=== PATIENT | female | born 1990 | race American Indian/Alaskan Native ===

== ENCOUNTER 2018-04-08 16:36 | Emergency (ER) | payer SELFPAY ==
[2018-04-08 16:48] VITALS: BP 118/60
== END 2018-04-08 17:40 | disposition left against medical advice (07) ==
LOC: ED 16:36
DX: N83.209 Unspecified ovarian cyst, unspecified side (principal); Z53.21 Procedure and treatment not carried out due to patient leaving prior to being seen by health care provider

== ENCOUNTER 2018-08-28 03:52 | Outpatient (CLI) | payer MEDICAID ==
[2018-08-28] MEDS ORDERED: LACTATED RINGERS 1,000 ML IV ONE (04:23)
[2018-08-28 04:58] LABS: Bilirubin,Urine NEG (Negative); Blood,Urine NEG (Negative); Color,Urine Yellow (Yellow); Mucus,Urine FEW /HPF; Protein,Urine <15 mg/dL mg/dL (Negative); Urobilinogen,Urine < 2.0 mg/dL (<2.0)
[2018-08-28 05:46] VITALS: BP 103/61
== END 2018-08-28 06:00 | disposition home or self-care (01) ==
LOC: TRG 03:52
PROVIDERS: ATTEND Obstetrics & Gynecology
DX: O47.03 False labor before 37 completed weeks of gestation, third trimester (principal); Z3A.30 30 weeks gestation of pregnancy
CPT/HCPCS: 59025; 81001

== ENCOUNTER 2018-10-14 09:53 | Outpatient (CLI) | payer MEDICAID ==
[2018-10-14 10:09] VITALS: BP 106/61
== END 2018-10-14 10:50 | disposition home or self-care (01) ==
LOC: TRG 09:53
PROVIDERS: ATTEND Obstetrics & Gynecology
DX: O47.03 False labor before 37 completed weeks of gestation, third trimester (principal); Z3A.37 37 weeks gestation of pregnancy
CPT/HCPCS: 59025

== ENCOUNTER 2018-10-16 07:23 | Outpatient (CLI) | payer MEDICAID ==
[2018-10-16 07:51] VITALS: BP 115/64
[2018-10-16] MEDS ORDERED: TYLENOL PO ONE ×2 (08:39→09:00)
[2018-10-16] MEDS ORDERED: TYLENOL ONE (08:45)
== END 2018-10-16 08:45 | disposition home or self-care (01) ==
LOC: TRG 07:23
PROVIDERS: ATTEND Obstetrics & Gynecology
DX: O47.03 False labor before 37 completed weeks of gestation, third trimester (principal); Z3A.37 37 weeks gestation of pregnancy
CPT/HCPCS: 59025

== ENCOUNTER 2018-10-22 22:37 | Outpatient (CLI) | payer MEDICAID ==
[2018-10-22] MEDS ORDERED: TYLENOL PO PRN (23:57)
[2018-10-23 00:50] LABS: Bacteria,Urine 1+ /HPF (Negative); Bilirubin,Urine NEG (Negative); Blood,Urine NEG (Negative); Color,Urine Yellow (Yellow); Mucus,Urine 3+ /HPF; Protein,Urine <15 mg/dL mg/dL (Negative)
[2018-10-23 01:16] VITALS: BP 108/60
== END 2018-10-23 01:43 | disposition home or self-care (01) ==
LOC: TRG 22:37
PROVIDERS: ATTEND Obstetrics & Gynecology
DX: O47.1 False labor at or after 37 completed weeks of gestation (principal); Z3A.38 38 weeks gestation of pregnancy
CPT/HCPCS: 59025; 81001

== ENCOUNTER 2018-10-30 18:51 | Outpatient (CLI) | payer MEDICAID | END 2018-10-30 21:50 | disposition home or self-care (01) | LOC: TRG 18:51 | PROVIDERS: ATTEND Obstetrics & Gynecology | DX: O47.1 False labor at or after 37 completed weeks of gestation (principal); Z3A.39 39 weeks gestation of pregnancy | CPT/HCPCS: 59025 ==

== ENCOUNTER 2018-10-31 02:09 | Outpatient (CLI) | payer MEDICAID ==
--- NOTE | 2018-10-31 06:20 | Ultrasound Report ---
Limited OB ultrasound for abruption FINDINGS: The placenta is lateral and to the right. There is no definite abruption. Single fetus is i dentified in vertex presentation with heart rate of 155 bpm. Signer Name: Brayden Mata MD Signed: 10/31/2018 6:15 AM Workstation Name: [id number]
== END 2018-10-31 06:02 | disposition home or self-care (01) ==
LOC: TRG 02:09
PROVIDERS: ATTEND Obstetrics & Gynecology
DX: O62.8 Other abnormalities of forces of labor (principal); Z3A.39 39 weeks gestation of pregnancy
CPT/HCPCS: 59025; 76815

== ENCOUNTER 2018-11-01 11:17 | Inpatient (IN) | payer MEDICAID ==
[2018-11-01] MEDS ORDERED: BRETHINE IVP PRN (15:18)
[2018-11-01] MEDS ORDERED: MINERAL OIL PO PRN (15:18)
[2018-11-01] MEDS ORDERED: XYLOCAINE 2% INFILTRATI ONE (15:18)
[2018-11-01] MEDS ORDERED: BRETHINE SUB-Q PRN (15:18)
--- NOTE | 2018-11-01 15:18 | History and Physical Report ---
History of Present Illness Date of examination: 11/01/18 Date of admission: 11/01/18 15:16 Chief complaint: vaginal bleeding History of present illness: Patient called office with c/o vaginal bleeding "like a period" and was sent to triage for evaluation. Menstrual History Regularity: regular Menses every: 30 days Duration: 5 LMP: 01/26/2018 LMP reliability: definite LMP character: normal test type: urine test Date: 04/03/2018 BC at conception: none Planned ? no EDC Calculations LMP: 11/02/2018 EDC Confirmation: 11/02/2018 Gestational Age: 12 6/7 weeks Past History : 3 Term Births: 1 Premature Births: 1 Living Children: 1 Para: 2 Mult. Births: 0 Prev : 0 Prev. attempt? none Aborta: 0 Elect. Ab: 0 Spont. Ab: 0 Ectopics: 0 # 1 Delivery date: 03/12/2009 Weeks Gestation: 39+5 Delivery type: Vaginal Anesthesia type: epidural Delivery location: [facility] Infant Sex: female weight: 7.25 Name: Omayra Comments: mild shoulder, dystocia, PP bleeding # 2 Delivery date: 02/10/2011 Weeks Gestation: 36 labor: yes Delivery type: Anesthesia type: epidural Delivery location: [facility] Sex: Female weight: unknown Name: Jorden Past Medical History: Reviewed history from 04/23/2009 and no changes required: Negative Past Medical History Past Surgical History: wrist surgery- 2011 Past Medical History Surgery (Non-title i teacher): wrist surgery- 2011 Abnormal PAP: negative CHRISTINE Exposure: negative Infertility: negative Uterine Anomaly: negative Uterine Surgery (not C/S): negative Other Gynecologic Problems: negative Social Hx: single, no etoh, no illicit drug use, no tobacco use Infection History Hx of STD: chlamydia HIV Risk Eval: low risk Hepatitis B Risk Eval: low risk Personal hx. of genital herpes: no Partner hx. of genital herpes: no Varicella/Chicken Pox Status: Immunized TB Risk: no Infection History Comments: chlamydia 2008 Genetic History Congenital Heart Defect: Mom: no Dad: no Lisa Disease: Mom: no Dad: no Thalassemia Mom: no Dad: no Neural Tube Defect Mom: no Dad: no Down's Syndrome Mom: no Dad: no Jakub-Sachs Mom: no Dad: no Sickle Cell Disease/Trait Mom: no Dad: no Hemophilia Mom: no Dad: no Muscular Dystrophy Mom: no Dad: no Cystic Fibrosis Mom: no Dad: no Jorgito Chorea Mom: no Dad: no Mental Retardation Mom: no Dad: no Fragile X Mom: no Dad: no Other Genetic/Chromosomal Disorder Mom: no Dad: no Child w/other defect Mom: no Dad: no Enviromental Exposures Enviromental Exposures Reviewed Xray Exposure: no Medication, drug, or alcohol use since LMP: no Chemical/Other Exposure: no Exposure to Cat Liter: yes Hx of Parvovirus (Fifth Disease): no Occupational Exposure to Children: none Active Medications: None Current Allergies (reviewed today): No known allergies Past History Past Medical History: other (see HPI) Past Surgical History: other (see HPI) [employer] History: other (see HPI) Family/Genetic History: other (see HPI) Social history: other (see HPI) - Obstetrical History Expected Date of Delivery: 11/02/18 Actual Gestation: 39 Week(s) 6 Day(s) : 3 Para: 2 Medications and Allergies Allergies Allergy/AdvReac Type Severity Reaction Status Date / Time No Known Allergies Allergy Verified 10/22/18 23:24 Home Medications Medication Instructions Recorded Confirmed Last Taken Type Vit-Fe Fumar-FA [ 1 tab PO DAILY 08/28/18 11/01/18 10/30/18 08:00 History Vitamin] Review of Systems All systems: negative Genitourinary: vaginal bleeding, contractions - Vital Signs Vital signs: Vital Signs Pulse BP 81 117/59 11/01/18 11:33 11/01/18 11:33 Temp Pulse Resp BP Pulse Ox 98.3 F 81 18 117/59 11/01/18 11:34 11/01/18 11:33 11/01/18 11:34 11/01/18 11:33 - Physical Exam Breasts: Cardiovascular: Regular rate, Normal S1, Normal S2 Lungs: Positive: Clear to auscultation, Normal air movement Abdomen: Positive: normal appearance, soft, normal bowel sounds. Negative: distention, tenderness Genitourinary (Female): Positive: normal external genitalia, normal perenium Vulva: both: normal Vagina: Positive: normal moisture. Negative: discharge Cervix: Negative: lesion, discharge Uterus: Positive: normal size, normal contour Adnexa: both: normal Anus/Rectum: Positive: normal perianal skin. Negative: rectal mass, hemorrhoids Extremities: Deep Tendon Reflex Grade: Normal +2 - Obstetrical FHR: auscultation normal Cervical Dilatation: 3.5 Cervical Effacement Percentage: 60 station: -2 Results Result Diagrams: 11/01/18 15:05 All other labs normal. Assessment and Plan Patient presents to triage for evaluation of vaginal bleeding. US shows decreased ZAHRA of 2.9. No s/s of ROM. Pt admitted for IOL. Admission orders placed in EMR. GBS negative.
--- NOTE | 2018-11-01 15:24 | Ultrasound Report ---
ULTRASOUND BIOPHYSICAL PROFILE INDICATION: wellbeing and vaginal bleeding. COMPARISON: None available. FINDINGS: heart rate is 126 beats per minute. breathing movement = 2 Gross body movement = 2 tone = 2 Qualitative amniotic fluid volume = 2 IMPRESSION: biophysical profile = 10/31 Signer Name: Michael Stack Jr, MD Signed: 11/01/2018 3:20 PM Workstation Name: [id number]
[2018-11-01 15:31] LABS: Hematocrit 30.3 % (30.3-42.9); Hemoglobin 10.4 gm/dl (10.1-14.3); Mean Corpuscular HGB Conc 34 % (30-34); Mean Corpuscular Volume 85 fl (79-97); Platelet Count 270 K/mm3 (140-440); Red Blood Count 3.59 M/mm3 (3.65-5.03)
--- NOTE | 2018-11-01 15:36 | Ultrasound Report ---
ULTRASOUND OB LIMITED INDICATION: decreased movment TECHNIQUE: Transabdominal ultrasound imaging. COMPARISON: None FINDINGS: Single intrauterine is identified. The placenta is fundal, right lateral grade 2. Amniotic fluid index is 2.9 cm. Presentation is cephalic. heart rate is 129 beats per minute. IMPRESSION: Oligohydramnios. Signer Name: Michael Stack Jr, MD Signed: 11/01/2018 3:32 PM Workstation Name: [id number]
[2018-11-01] MEDS: LACTATED RINGERS 1,000 ML IV SCH ×3 (15:59→20:33)
[2018-11-01] MEDS ORDERED: PITOCin/NS 20 UNIT/1000ML DRIP 20 UNITS/1,000 ML BAG IV SCH (16:00)
[2018-11-01] MEDS ORDERED: PITOCin/NS 30 UNIT/500ML 30 UNITS/500 ML BAG IV SCH ×2 (16:00)
[2018-11-01] MEDS ORDERED: SUBLIMAZE IV ONE (18:55)
--- NOTE | 2018-11-01 19:05 | Progress Note ---
Assessment and Plan Progressing well. Allow epidural - Patient Problems (1) 39 weeks gestation of Current Visit: Yes Status: Acute (2) Oligohydramnios Current Visit: Yes Status: Acute Qualifiers: Fetus number: single or unspecified fetus Subjective - Subjective Date of service: 11/01/18 Principal diagnosis: IUP@39weeks, oligohydramnios Patient reports: movement normal, contractions Objective - Vital Signs Vital Signs: Vital Signs - 12hr 11/01/18 11/01/18 11/01/18 11:33 11:34 15:18 Temperature 98.3 F Pulse Rate 81 80 Respiratory 18 Rate Blood Pressure 117/59 108/59 O2 Sat by Pulse Oximetry 11/01/18 11/01/18 11/01/18 15:44 15:49 15:54 Temperature Pulse Rate 100 H 77 Respiratory Rate Blood Pressure O2 Sat by Pulse 95 100 100 Oximetry 11/01/18 11/01/18 11/01/18 15:59 16:04 16:09 Temperature Pulse Rate 73 86 80 Respiratory Rate Blood Pressure O2 Sat by Pulse 100 100 99 Oximetry 11/01/18 11/01/18 11/01/18 16:14 16:19 16:24 Temperature Pulse Rate 81 83 82 Respiratory Rate Blood Pressure O2 Sat by Pulse 99 100 98 Oximetry 11/01/18 11/01/18 11/01/18 16:29 16:34 16:39 Temperature Pulse Rate 99 H 85 82 Respiratory Rate Blood Pressure O2 Sat by Pulse 99 99 98 Oximetry 11/01/18 11/01/18 11/01/18 16:45 16:46 16:50 Temperature Pulse Rate 86 83 Respiratory Rate Blood Pressure O2 Sat by Pulse 96 94 100 Oximetry 11/01/18 11/01/18 11/01/18 16:55 17:00 17:05 Temperature Pulse Rate 86 81 85 Respiratory Rate Blood Pressure O2 Sat by Pulse 99 99 99 Oximetry 11/01/18 11/01/18 11/01/18 17:10 17:15 17:16 Temperature Pulse Rate 75 92 H 93 H Respiratory Rate Blood Pressure O2 Sat by Pulse 100 98 87 Oximetry 11/01/18 11/01/18 11/01/18 17:20 17:25 17:30 Temperature Pulse Rate 83 83 77 Respiratory Rate Blood Pressure O2 Sat by Pulse 100 100 100 Oximetry 11/01/18 11/01/18 11/01/18 17:35 17:39 17:40 Temperature Pulse Rate 86 87 82 Respiratory Rate Blood Pressure O2 Sat by Pulse 100 74 L 100 Oximetry 11/01/18 11/01/18 11/01/18 17:45 17:49 17:50 Temperature 97.9 F Pulse Rate 85 76 Respiratory Rate Blood Pressure O2 Sat by Pulse 100 99 Oximetry 11/01/18 11/01/18 11/01/18 17:55 18:00 18:05 Temperature Pulse Rate 101 H 114 H 97 H Respiratory Rate Blood Pressure O2 Sat by Pulse 100 100 100 Oximetry 11/01/18 11/01/18 11/01/18 18:10 18:12 18:15 Temperature Pulse Rate 98 H 84 88 Respiratory Rate Blood Pressure O2 Sat by Pulse 100 94 100 Oximetry 11/01/18 11/01/18 11/01/18 18:20 18:25 18:30 Temperature Pulse Rate 106 H 94 H 67 Respiratory Rate Blood Pressure O2 Sat by Pulse 100 100 100 Oximetry 11/01/18 11/01/18 11/01/18 18:33 18:35 18:40 Temperature Pulse Rate 112 H 94 H 107 H Respiratory Rate Blood Pressure O2 Sat by Pulse 90 99 100 Oximetry 11/01/18 11/01/18 11/01/18 18:45 18:50 18:55 Temperature Pulse Rate 106 H 97 H 77 Respiratory Rate Blood Pressure O2 Sat by Pulse 100 100 100 Oximetry - Exam Breasts: deferred Lungs: Normal air movement Abdomen: Absent: tenderness Vulva: both: normal Uterus: Present: fundal height above umbilicus. Absent: tenderness FHR: category 2 Uterine Contraction Monitor Mode: External Cervical Dilatation: 605 Cervical Effacement Percentage: 100 station: -1 Uterine Contraction Pattern: Regular - Labs Labs: Abnormal Labs 11/01/18 15:05 RBC 3.59 L Laboratory Results - last 24 hr 11/01/18 11/01/18 15:05 15:05 WBC 8.3 RBC 3.59 L Hgb 10.4 Hct 30.3 MCV 85 MCH 29 MCHC 34 RDW 14.0 Plt Count 270 Blood Type O POSITIVE Antibody Screen Negative
[2018-11-01] MEDS ORDERED: MARCAINE 0.25% INFILTRATI ONE (19:52)
[2018-11-01] MEDS ORDERED: NARCAN 2 MG/2 ML IV PRN (20:08)
--- NOTE | 2018-11-01 20:24 | Anesthesia Consultation ---
Anesthesia Consult and Med Hx Date of service: 11/01/18 - Airway Anesthetic Teeth Evaluation: Good ROM Head & Neck: Adequate Mental/Hyoid Distance: Adequate Mallampati Class: Class II Intubation Access Assessment: Good - Pulmonary Exam CTA: Yes - Cardiac Exam Cardiac Exam: RRR - Pre-Operative Health Status ASA Pre-Surgery Classification: ASA2, Emergency Proposed Anesthetic Plan: Epidural - Pulmonary Hx Asthma: No COPD: No Hx Pneumonia: No - Cardiovascular System Hx Hypertension: No Hx Heart Attack/AMI: No Hx Pacemaker: No Hx Internal Defibrillator: No - Central Nervous System Hx Seizures: No Hx Psychiatric Problems: No - Endocrine Hx Renal Disease: No Hx End Stage Renal Disease: No Hx Liver Disease: No Hx Hypothyroidism: No Hx Hyperthyroidism: No - Hematic Hx Anemia: No Hx Sickle Cell Disease: No - Other Systems Hx Alcohol Use: No
[2018-11-01] MEDS ORDERED: fentaNYL-BUPIV 2 MCG/ML-0.125% 200 MCG/100 ML BAG EPIDURAL SCH (21:00)
--- NOTE | 2018-11-01 23:08 | Procedure Note ---
OB Delivery Note - Delivery Date of Delivery: 11/01/18 Surgeon: SHAUN COLLADO Estimated blood loss: other (35mL) - Vaginal Delivery presentation: vertex Delivery position: OA Intrapartum events: meconium (moderate), hydramnios Delivery induction: oxytocin Delivery augmentation: rupture of membranes, pitocin Delivery monitor: external FHT, external uterine Route of delivery: Delivery placenta: spontaneous (intact) Delivery cord: nuchal cord (x1, delivered over shoulder and body with delivery) Episiotomy: none Delivery laceration: none Anesthesia: epidural - Infant A at 1 minute: 8 at 5 minutes: 9 Infant Gender: Male (7lbs 8oz, mouth and nose bulb suctioned after delivery d/t concerns for possible shoulder dystocia)
[2018-11-02] MEDS ORDERED: LANSINOH TP PRN (00:46)
[2018-11-02] MEDS ORDERED: CYTOTEC PR PRN (00:46)
[2018-11-02] MEDS ORDERED: TUCKS PAD TP PRN (00:46)
[2018-11-02] MEDS ORDERED: PHENERGAN PR PRN (00:46)
[2018-11-02] MEDS ORDERED: MILK OF MAGNESIA PO PRN (00:46)
[2018-11-02] MEDS ORDERED: BENADRYL PO PRN (00:46)
[2018-11-02] MEDS ORDERED: ZOFRAN IV PRN (00:46)
[2018-11-02] MEDS ORDERED: SODIUM CHLORIDE FLUSH SYRINGE 10 ML IV NR (00:46)
[2018-11-02] MEDS ORDERED: HEMABATE IM PRN (00:46)
[2018-11-02] MEDS ORDERED: TYLENOL PO PRN (00:46)
[2018-11-02] MEDS ORDERED: PHENERGAN PO PRN (00:46)
[2018-11-02] MEDS ORDERED: METHERGINE IM PRN (00:46)
[2018-11-02] MEDS: IBUPROFEN PO SCH ×4 (02:08→23:36)
[2018-11-02] MEDS ORDERED: DULCOLAX PR PRN (10:00)
--- NOTE | 2018-11-02 10:02 | Progress Note ---
Assessment and Plan - Patient Problems (1) Delivery normal Current Visit: Yes Status: Acute Plan to address problem: Doing well. Will continue routine care. Breast feeding Desire BTL Subjective - Subjective Date of service: 11/02/18 Principal diagnosis: IUP@39weeks, oligohydramnios PP#! Patient reports: appetite normal, voiding normally, pain well controlled : doing well Objective - Vital Signs Latest vital signs: Vital Signs Temp Pulse Resp BP BP Pulse Ox 11/02/18 08:03 97.4 F L 85 20 102/62 98 11/02/18 04:23 98.5 F 84 20 95/53 98 11/02/18 00:34 97.9 F 91 H 16 102/44 100 11/01/18 23:57 89 100 11/01/18 23:55 77 109/56 11/01/18 23:52 72 99 11/01/18 23:47 87 100 11/01/18 23:42 92 H 100 11/01/18 23:40 85 92/52 11/01/18 23:37 77 100 11/01/18 23:32 71 100 11/01/18 23:27 100 H 100 11/01/18 23:25 79 108/57 11/01/18 23:22 71 100 11/01/18 23:17 71 100 11/01/18 23:12 84 100 11/01/18 23:10 75 107/53 11/01/18 23:07 101 H 100 11/01/18 23:03 100 H 110/55 11/01/18 23:02 89 100 11/01/18 22:55 98 H 89/53 11/01/18 22:52 86 96/51 11/01/18 22:47 82 100/59 11/01/18 22:43 108 H 109/52 11/01/18 22:38 85 103/51 11/01/18 22:27 106 H 114/51 11/01/18 22:23 110 H 114/72 11/01/18 22:20 78 96/65 11/01/18 22:14 71 110/57 11/01/18 22:11 119 H 68 L 11/01/18 22:10 91 H 74 L 11/01/18 22:08 76 103/47 11/01/18 22:06 78 100 11/01/18 22:04 65 33 L 11/01/18 22:03 71 108/59 11/01/18 22:01 88 99 11/01/18 21:58 72 109/53 11/01/18 21:57 77 72 L 11/01/18 21:56 83 100 11/01/18 21:52 71 105/55 11/01/18 21:51 70 100 11/01/18 21:50 81 91 11/01/18 21:47 68 103/58 11/01/18 21:46 77 100 11/01/18 21:44 83 108/58 11/01/18 21:41 91 H 100 11/01/18 21:39 73 104/57 11/01/18 21:36 84 90 11/01/18 21:33 75 113/55 11/01/18 21:31 80 100 11/01/18 21:27 74 114/57 11/01/18 21:26 75 100 11/01/18 21:23 78 115/59 11/01/18 21:21 85 100 11/01/18 21:17 76 112/57 11/01/18 21:16 75 100 11/01/18 21:13 74 112/55 11/01/18 21:11 84 100 11/01/18 21:08 75 112/59 11/01/18 21:06 74 100 11/01/18 21:05 102 H 93 11/01/18 21:03 88 102/58 11/01/18 21:01 66 59 L 11/01/18 20:57 72 43 L 11/01/18 20:56 104 H 100 11/01/18 20:52 96 H 99/54 11/01/18 20:51 71 100 11/01/18 20:48 72 96/50 11/01/18 20:46 77 99 11/01/18 20:43 76 98/47 11/01/18 20:41 71 99 11/01/18 20:39 63 97/50 11/01/18 20:36 74 96 11/01/18 20:33 65 95/52 11/01/18 20:31 66 99 11/01/18 20:26 73 99 11/01/18 20:25 95 H 99/54 11/01/18 20:23 97.5 F L 81 80/44 11/01/18 20:21 75 89/52 100 11/01/18 20:19 66 97/51 11/01/18 20:17 67 98/52 11/01/18 20:16 78 99 11/01/18 20:15 78 99/51 11/01/18 20:13 75 93/54 11/01/18 20:11 67 84/45 100 11/01/18 20:09 88 105/52 11/01/18 20:07 74 98/53 11/01/18 20:06 88 99 11/01/18 20:05 86 103/57 11/01/18 20:04 75 108/53 11/01/18 20:01 92 H 100 11/01/18 19:35 81 100 11/01/18 19:30 76 100 11/01/18 19:25 99 H 100 11/01/18 19:20 80 100 11/01/18 19:15 89 100 11/01/18 19:10 98 H 99 11/01/18 19:05 90 100 11/01/18 19:00 83 97 11/01/18 18:55 77 100 11/01/18 18:50 97 H 100 11/01/18 18:45 106 H 100 11/01/18 18:40 107 H 100 11/01/18 18:35 94 H 99 11/01/18 18:33 112 H 90 11/01/18 18:30 67 100 11/01/18 18:25 94 H 100 11/01/18 18:20 106 H 100 11/01/18 18:15 88 100 11/01/18 18:12 84 94 11/01/18 18:10 98 H 100 11/01/18 18:05 97 H 100 11/01/18 18:00 114 H 100 11/01/18 17:55 101 H 100 11/01/18 17:50 76 99 11/01/18 17:49 97.9 F 11/01/18 17:45 85 100 11/01/18 17:40 82 100 11/01/18 17:39 87 74 L 11/01/18 17:35 86 100 11/01/18 17:30 77 100 11/01/18 17:25 83 100 11/01/18 17:20 83 100 11/01/18 17:16 93 H 87 11/01/18 17:15 92 H 98 11/01/18 17:10 75 100 11/01/18 17:05 85 99 11/01/18 17:00 81 99 11/01/18 16:55 86 99 11/01/18 16:50 83 100 11/01/18 16:46 86 94 11/01/18 16:45 96 11/01/18 16:39 82 98 11/01/18 16:34 85 99 11/01/18 16:29 99 H 99 11/01/18 16:24 82 98 11/01/18 16:19 83 100 11/01/18 16:14 81 99 11/01/18 16:09 80 99 11/01/18 16:04 86 100 11/01/18 15:59 73 100 11/01/18 15:54 77 100 11/01/18 15:49 100 H 100 11/01/18 15:44 95 11/01/18 15:18 80 108/59 11/01/18 11:34 98.3 F 18 11/01/18 11:33 81 117/59 Intake and Output 11/01/18 11/02/18 11/02/18 22:59 06:59 14:59 Intake Total 583.500 240 Output Total 900 Balance 583.500 -660 Intake: IV 583.500 Lactated Ringers 1,000 ml 570.833 @ 125 mls/hr IV DIRECT [facility] Rx#:[id number] PITOCin/NS 30 UNIT/500ML 12.667 30 units In 500 ml @ 1 MILLIUNITS/MIN 1 mls/hr IV TITR [facility]ALLORY Rx#:[id number] Oral 240 Output: Urine 900 Indwelling Catheter 500 Void 400 Other: Total, Intake Amount 240 Total, Output Amount 400 # Voids Void 2 Estimated Blood Loss 350 - Exam Breasts: Present: deferred Cardiovascular: Present: Regular rate Lungs: Present: Normal air movement Uterus: Present: firm, fundal height at umbilicus Extremities: Present: edema - Labs Labs: Abnormal lab results 11/01/18 Range/Units 15:05 RBC 3.59 L (3.65-5.03) M/mm3
--- NOTE | 2018-11-02 10:49 | Post Anesthesia Evaluation ---
- Post Anesthesia Evaluation Patient Participated: Yes Airway Patent: Yes Stable Respiratory Function: Yes Nausea/Vomiting: No Temp > 96.8F: Yes Pain Manageable: Yes Adequeate Hydration: Yes Anesthesia Complications: No Block Receding Appropriately: Yes Patient on Ventilator: No
[2018-11-02 11:42] LABS: Hematocrit 26.3 % (30.3-42.9); Hemoglobin 8.7 gm/dl (10.1-14.3)
[2018-11-03] MEDS: IBUPROFEN PO SCH (05:26)
[2018-11-03] MEDS ORDERED: BOOSTRIX IM ONE (06:00)
--- NOTE | 2018-11-03 11:06 | Discharge Summary ---
Providers - Providers Date of Admission: 11/01/18 15:16 Date of discharge: 11/03/18 Attending physician: SHAUN COLLADO 11/02/18 00:46 Consult to Marketer [CONS] Routine Reason For Exam: assistance with , SNS Primary care physician: DAVID STEIN Hospitalization Reason for admission: active labor Delivery: Episiotomy: none Other procedures: none complications: none [place] baby: male Hospital course: See dictated H&P details. Patient was admitted underwent a normal spontaneous vaginal delivery. Her course was benign. She was afebrile throug hout her stay. Her day 1 hematocrit was 26.3%. Patient without orthostatic symptoms. Patient desires discharge. Patient is breast-feeding and has plans for bilateral tubal ligation. Condition at discharge: Good Disposition: DC-01 TO HOME OR SELFCARE - Discharge Diagnoses (1) Delivery normal Status: Acute (2) Oligohydramnios Status: Acute Qualifiers: Fetus number: single or unspecified fetus Trimester: third trimester Qualified Code(s): O41.03X0 - Oligohydramnios, third trimester, not applicable or unspecified (3) Anemia Status: Acute Qualifiers: Anemia type: unspecified type Qualified Code(s): D64.9 - Anemia, unspecified Plan - Discharge Medications Prescriptions: Lidocain2.5%/Prilocai2.5% [Emla] 5 gm TP ONCE #1 tube - Provider Discharge Summary Activity: routine Diet: routine Instructions: routine Additional instructions: [] Smoking cessation referral if applicable(refer to patient education folder for contact #) [] Refer to [facility]'s [facility] Booklet Call your doctor immediately for: * Fever > 100.5 * Heavy vaginal bleeding ( >1 pad per hour) * Severe persistent headache * Shortness of breath * Reddened, hot, painful area to leg or breast * Drainage or odor from incision. *Patient to call the office for scheduling her son's circumcision. Patient to follow up in office in 4 weeks for her visit. - Follow up plan Follow up: DAVID STEIN MD [Primary Care Provider] - 7 Days
[2018-11-03 15:52] VITALS: BP 108/68
== END 2018-11-03 17:40 | disposition home or self-care (01) | DRG 775 ==
LOC: TRG 11:17 → LD 15:16 → OB 11-02 01:30
PROVIDERS: ADMIT Obstetrics & Gynecology; ATTEND Obstetrics & Gynecology
PROC: 10E0XZZ Delivery of Products of Conception, External Approach (ICD-10-PCS; principal; 2018-11-01)
PROC: 3E0R3BZ Introduction of Anesthetic Agent into Spinal Canal, Percutaneous Approach (ICD-10-PCS; 2018-11-01)
PROC: 00HU33Z Insertion of Infusion Device into Spinal Canal, Percutaneous Approach (ICD-10-PCS; 2018-11-01)
PROC: 3E033VJ Introduction of Other Hormone into Peripheral Vein, Percutaneous Approach (ICD-10-PCS; 2018-11-01)
DX: O41.03X0 Oligohydramnios, third trimester, not applicable or unspecified (principal); O77.0 Labor and delivery complicated by meconium in amniotic fluid; O69.81X0 Labor and delivery complicated by cord around neck, without compression, not applicable or unspecified; O99.02 Anemia complicating childbirth; D64.9 Anemia, unspecified; O40.3XX0 Polyhydramnios, third trimester, not applicable or unspecified; Z3A.39 39 weeks gestation of pregnancy; Z37.0 Single live birth
CPT/HCPCS: 36415; 76815; 76819; 85014; 85018; 85027; 86592; 86850; 86900; 86901; G0378; J2590; J3010; J7120

== ENCOUNTER 2020-02-27 14:33 | Emergency (ER) | payer SELFPAY ==
[2020-02-27 14:43] VITALS: BP 111/63
--- NOTE | 2020-02-27 14:50 | Emergency Department Report ---
ED General Adult HPI - General Chief complaint: Pain General Stated complaint: TOOTH PAIN Time Seen by Provider: 02/27/20 14:43 Source: patient Mode of arrival: Ambulatory Limitations: No Limitations - History of Present Illness Initial comments: 29-year-old -[place] female patient presents with complaints of left lower dental painx yesterday. Patient states she has a deep cavity in the area and she was unable to get into see her dentist today. She does state that she plans on following up with the dentist next week. She rates her pain as a 8/10 in severity and states Aleve is not helping. She denies any facial swelling, fever/chills/sweats, difficulty opening her jaw, or dysphagia. Severity scale (0 -10): 4 - Related Data Home Medications Medication Instructions Recorded Confirmed Last Taken Vit-Fe Fumar-FA [ 1 tab PO DAILY 08/28/18 11/01/18 10/30/18 08:00 Vitamin] Previous Rx's Medication Instructions Recorded Last Taken Type Lidocain2.5%/Prilocai2.5% [Emla] 5 gm TP ONCE #1 tube 11/01/18 Unknown Rx Ferrous Sulfate [Feosol 325 MG tab] 325 mg PO BID #60 tablet 11/03/18 Unknown Rx Acetaminophen/Codeine [Tylenol 1 tab PO Q8H PRN #10 tab 02/27/20 Unknown Rx /Codeine # 3 tab] Ibuprofen [Motrin 800 MG tab] 800 mg PO Q8HR PRN #20 tablet 02/27/20 Unknown Rx Penicillin V Potassium 500 mg PO QID 7 Days #28 tablet 02/27/20 Unknown Rx Allergies Allergy/AdvReac Type Severity Reaction Status Date / Time No Known Allergies Allergy Verified 10/22/18 23:24 ED Review of Systems ROS: Stated complaint: TOOTH PAIN Other details as noted in HPI Constitutional: denies: chills, fever, malaise ENT: dental pain. denies: throat pain Respiratory: denies: shortness of breath Cardiovascular: denies: chest pain Skin: denies: change in color Neurological: denies: headache Hematological/Lymphatic: denies: swollen glands ED Past Medical Hx - Past Medical History Hx Hypertension: No Hx CVA: No Hx Heart Attack/AMI: No Hx Congestive Heart Failure: No Hx Diabetes: No Hx Deep Vein Thrombosis: No Hx Pulmonary Embolism: No Hx GERD: No Hx Liver Disease: No Hx Renal Disease: No Hx Sickle Cell Disease: No Hx Arthritis: No Hx Headaches / Migraines: No Hx Seizures: No Hx Kidney Stones: No Hx Psychiatric Treatment: No Hx Asthma: No Hx COPD: No Hx Tuberculosis: No Hx Dementia: No Hx HIV: No - Surgical History Hx Coronary Stent: No Hx Open Heart Surgery: No Hx Pacemaker: No Hx Internal Defibrillator: No Hx Cholecystectomy: No Hx Appendectomy: No Hx Breast Surgery: No Additional Surgical History: right wrist surgery - Social History Smoking Status: Never Smoker - Medications Home Medications: Home Medications Medication Instructions Recorded Confirmed Last Taken Type Vit-Fe Fumar-FA [ 1 tab PO DAILY 08/28/18 11/01/18 10/30/18 08:00 History Vitamin] Lidocain2.5%/Prilocai2.5% [Emla] 5 gm TP ONCE #1 tube 11/01/18 Unknown Rx Ferrous Sulfate [Feosol 325 MG tab] 325 mg PO BID #60 tablet 11/03/18 Unknown Rx Acetaminophen/Codeine [Tylenol 1 tab PO Q8H PRN #10 tab 02/27/20 Unknown Rx /Codeine # 3 tab] Ibuprofen [Motrin 800 MG tab] 800 mg PO Q8HR PRN #20 tablet 02/27/20 Unknown Rx Penicillin V Potassium 500 mg PO QID 7 Days #28 tablet 02/27/20 Unknown Rx ED Physical Exam - General Limitations: No Limitations General appearance: alert, in no apparent distress - Head Head exam: Present: atraumatic, normocephalic - Eye Eye exam: Absent: scleral icterus - Expanded ENT Exam Expanded Mouth exam: Absent: drooling, trismus, muffled voice Teeth exam: Present: dental caries 1 - Dental Tenderness (Deep cavity noted with minimal surrounding erythema; no obvious abscess noted or facial swelling noted) - Neck Neck exam: Present: full ROM. Absent: tenderness, lymphadenopathy - Respiratory Respiratory exam: Absent: respiratory distress - Cardiovascular Cardiovascular Exam: Present: regular rate - Back Exam Back exam: Present: normal inspection - Neurological Exam Neurological exam: Present: alert, oriented X3 - Psychiatric Psychiatric exam: Present: normal affect, normal mood - Skin Skin exam: Present: warm, dry, intact, normal color. Absent: rash ED Course Vital Signs 02/27/20 14:42 Temperature 98.4 F Pulse Rate 69 Respiratory 16 Rate Blood Pressure 111/63 [Left] O2 Sat by Pulse 99 Oximetry ED Medical Decision Making - Medical Decision Making 29-year-old -[place] female patient presents with complaints of left lower dental painx yesterday. Patient states she has a deep cavity in the area and she was unable to get into see her dentist today. She does state that she plans on following up with the dentist next week. She rates her pain as a 8/10 in severity and states Aleve is not helping. She denies any facial swelling, fever/chills/sweats, difficulty opening her jaw, or dysphagia. Significant dental decay noted on exam with mild surrounding erythema and tenderness to palpation. Will treat with penicillin. Recommend follow-up with dental specialist on Sunday. Discussed signs and symptoms that should prompt immediate return to the ED in detail with patient who verbalized understanding. Critical care attestation.: If time is entered above; I have spent that time in minutes in the direct care of this critically ill patient, excluding procedure time. ED Disposition Clinical Impression: Dental infection Disposition: - TO HOME OR SELFCARE Is pt being admited?: No Condition: Stable Instructions: Dental Abscess Additional Instructions: Please follow-up with your dental specialist on 03/01/2020 Prescriptions: Ibuprofen [Motrin 800 MG tab] 800 mg PO Q8HR PRN #20 tablet PRN Reason: Pain, Moderate (4-6) Penicillin V Potassium 500 mg PO QID 7 Days #28 tablet Acetaminophen/Codeine [Tylenol /Codeine # 3 tab] 1 tab PO Q8H PRN #10 tab PRN Reason: Pain , Severe (7-10)
== END 2020-02-27 15:44 | disposition home or self-care (01) ==
LOC: ED 14:33
DX: K04.7 Periapical abscess without sinus (principal); Z79.899 Other long term (current) drug therapy; Z98.890 Other specified postprocedural states
CPT/HCPCS: 99282